=== PATIENT | female | born 2000 | race Caucasian/White ===

== ENCOUNTER 2024-08-06 15:55 | Inpatient (IN) | payer MEDICAID ==
[~2024-08-06] VITALS: Ht 160 cm; Wt 144.4 kg
[2024-08-06 17:16] LABS: BASOPHILS % (AUTO) 0.6 % (0.0-2.0); EOSINOPHILS % (AUTO) 0.2 % (1.0-6.0); HEMOGLOBIN 14.1 g/dL (12.0-16.0); LYMPHOCYTES # (AUTO) 1.2 K/uL (1.0-4.8); LYMPHOCYTES % (AUTO) 13.5 % (22.0-44.0); MEAN CORPUSCULAR HEMOGLOBIN 26.6 pg (26.0-34.0); MEAN CORPUSCULAR HGB CONC 32.1 G/dL (31.0-37.0); MEAN CORPUSCULAR VOLUME 83 fL (80-100); MONOCYTES # (AUTO) 0.5 K/uL (0.1-1.0); MONOCYTES % (AUTO) 5.7 % (2.0-9.0); NEUTROPHILS # (AUTO) 6.9 K/uL (1.8-7.7); PLATELET COUNT (AUTO) 392 K/uL (150-450); RED BLOOD CELL COUNT(AUTO) 5.29 MIL/uL (4.00-5.20); RED CELL DISTRIBUTION WIDTH 15.8 % (11.5-14.5); WHITE BLOOD COUNT (AUTO) 8.6 K/uL (4.5-11.0)
[2024-08-06 17:18] LABS: COVID AG,FIA SOURCE NASAL SWAB
[2024-08-06 17:39] LABS: ALCOHOL, BLOOD (SERUM) < 3 mg/dL (0-10); ANION GAP 12 mmol/L (8-16); CARBON DIOXIDE 25 mmol/L (22-29); CHLORIDE 104 mmol/L (98-107); CREATININE 0.84 mg/dL (0.60-1.30); GLOMERULAR FILTR. RATE CALC > 60 mL/min (>60); GLUCOSE,RANDOM 97 mg/dL (70-110); POTASSIUM 3.8 mmol/L (3.5-5.1); SODIUM SERUM 141 mmol/L (136-145); UREA NITROGEN, BLOOD 3 mg/dL (7-18)
[2024-08-06 17:59] LABS: SARS-COV2 (COVID) ANTIGEN,FIA Negative (Negative)
[2024-08-06] MEDS ORDERED: ZOLPIDEM TARTRATE 10 MG TABLET PO PRN (18:45)
[2024-08-06] MEDS ORDERED: MAG HYDROX/ALUMINUM HYD/SIMETH ES 30 ML SUSPENSION UDCUP PO PRN (18:45)
[2024-08-06] MEDS ORDERED: MAGNESIUM HYDROXIDE SUSPENSION 30 ML UDCUP PO PRN (18:45)
[2024-08-06] MEDS ORDERED: LOPERAMIDE HCL 2 MG CAPSULE PO PRN (18:45)
[2024-08-06] MEDS ORDERED: ACETAMINOPHEN 325 MG TABLET PO PRN (18:45)
[2024-08-06] MEDS ORDERED: LORazepam 2 MG TABLET PO PRN (18:45)
[2024-08-06] MEDS ORDERED: HALOPERIDOL 5 MG TABLET PO PRN (18:45)
[2024-08-06 19:22] VITALS: O2SAT 98
[2024-08-06 21:24] LABS: APPEARANCE,URINE HAZY (CLEAR); BILIRUBIN,URINE NEGATIVE (NEGATIVE); COLOR,URINE YELLOW (YELLOW); GLUCOSE, URINE (UA) NEGATIVE (NEGATIVE); KETONES,URINE =>150 mg/dL (NEGATIVE); LEUKOCYTE ESTERASE ,URINE MODERATE (NEGATIVE); NITRATE,URINE POSITIVE (NEGATIVE); OCCULT BLOOD,URINE NEGATIVE (NEGATIVE); PROTEIN,URINE 30-70 mg/dL (NEGATIVE); SPECIFIC GRAVITIY, URINE 1.024 (1.003-1.030)
[2024-08-06 21:33] LABS: ALCOHOL, URINE DRUG SCREEN NEGATIVE (NEGATIVE); AMPHET/METH SCREEN,URINE NEGATIVE (NEGATIVE); BARBITURATE SCREEN, URINE NEGATIVE (NEGATIVE); BENZODIAZEPINES SCREEN,URINE NEGATIVE (NEGATIVE); CANNABINOID SCREEN,URINE POSITIVE (NEGATIVE); COCAINE SCREEN,URINE NEGATIVE (NEGATIVE); METHADONE SCREEN, URINE NEGATIVE (NEGATIVE); OPIATE SCREEN,URINE NEGATIVE (NEGATIVE); PHENCYCLIDINE SCREEN,URINE NEGATIVE (NEGATIVE)
[2024-08-06 21:48] LABS: BACTERIA,URINE Many /HPF (None Seen); RBC,URINE 0-2 /HPF (0-2)
[2024-08-06 21:49] LABS: MUCUS,URINE Few LPF (None Seen); SQUAMOUS EPITHELIAL CELL,UR Moderate /LPF (None Seen)
[2024-08-06 23:43] VITALS: BP 139/82; PULSE 92; RESP 18; TEMP 97
[2024-08-07] MEDS: CEPHALEXIN MONOHYDRATE 500 MG CAPSULE PO SCH (07:55)
[2024-08-07 08:05] VITALS: BP 114/72; PULSE 69; RESP 17; TEMP 98; O2SAT 98
[2024-08-07 09:03] LABS: HEMOGLOBIN A1C 5.3 % (3.8-5.6)
[2024-08-07 09:14] LABS: CHOL/HDL RATIO 3.1 (3.9-5.7)
[2024-08-07] MEDS: SERTRALINE HCL 50 MG TABLET PO SCH (12:04)
[2024-08-07] MEDS ORDERED: NICOTINE 14 MG/24 HOUR PATCH TD PRN (19:15)
[2024-08-07] MEDS ORDERED: ALBUTEROL SULFATE HFA 90 MCG/PUFF 8 GM INHALER IH PRN (19:15)
[2024-08-07] MEDS ORDERED: GuaiFENesin/D-METHORPHAN [SUGAR-FREE] 200-20MG/10 ML SYRUP UDCUP PO PRN (19:15)
[2024-08-07] MEDS ORDERED: PETROLATUM,WHITE 28 GM JELLY TP PRN (19:15)
[2024-08-07] MEDS ORDERED: IBUPROFEN 400 MG TABLET PO PRN (19:15)
[2024-08-07] MEDS ORDERED: ONDANSETRON 4 MG TABLET PO PRN (19:15)
[2024-08-07] MEDS ORDERED: MAG HYDROX/ALUMINUM HYD/SIMETH ES 30 ML SUSPENSION UDCUP PO PRN (19:15)
[2024-08-07] MEDS ORDERED: MAGNESIUM HYDROXIDE SUSPENSION 30 ML UDCUP PO PRN (19:15)
[2024-08-07] MEDS ORDERED: LOPERAMIDE HCL 2 MG CAPSULE PO PRN (19:15)
[2024-08-07] MEDS ORDERED: CloNIDine HCL 0.1 MG TABLET PO PRN (19:15)
[2024-08-07] MEDS ORDERED: DOCUSATE SODIUM 100 MG CAPSULE PO PRN (19:15)
[2024-08-07] MEDS ORDERED: ACETAMINOPHEN 325 MG TABLET PO PRN (19:15)
[2024-08-07 20:05] VITALS: BP 129/93; PULSE 100; RESP 14; TEMP 96.7; O2SAT 97
[2024-08-08 08:12] VITALS: BP 110/72; PULSE 78; RESP 18; TEMP 97.2; O2SAT 97
[2024-08-08 09:06] LABS: HEMOGLOBIN A1C 5.1 % (3.8-5.6)
[2024-08-08 09:20] LABS: CHOL/HDL RATIO 2.6 (3.9-5.7); THYROID STIMULATING HORMONE 2.6 uIU/mL (0.36-3.74)
[2024-08-08 20:20] VITALS: BP 120/86; PULSE 98; RESP 17; TEMP 96.5; O2SAT 98
[2024-08-09 08:32] VITALS: BP 128/72; PULSE 108; RESP 18; TEMP 97.9; O2SAT 96
[2024-08-09] MEDS ORDERED: SERT-439 PO (09:41)
== END 2024-08-09 12:48 | disposition home or self-care (01) | DRG 751 ==
LOC: EMS 15:55 → B2S 22:40
PROVIDERS: ADMIT Psychiatry & Neurology Psychiatry; ATTEND Psychiatry & Neurology Psychiatry
PROC: GZHZZZZ Group Psychotherapy (ICD-10-PCS; principal; 2024-08-07)
DX: F33.2 Major depressive disorder, recurrent severe without psychotic features (principal); Z68.43 Body mass index [BMI] 50.0-59.9, adult; R45.851 Suicidal ideations; E66.01 Morbid (severe) obesity due to excess calories; Z20.822 Contact with and (suspected) exposure to COVID-19; F12.10 Cannabis abuse, uncomplicated; N39.0 Urinary tract infection, site not specified; F41.9 Anxiety disorder, unspecified; Z79.899 Other long term (current) drug therapy; Z91.51 Personal history of suicidal behavior
CPT/HCPCS: 80048; 80061; 80307; 81001; 83036; 84443; 84703; 85025; 87077; 87086; 87186; G0480